=== PATIENT | female | born 1965 | race Caucasian/White ===

== ENCOUNTER → 2020-10-24 | Outpatient (CLI) | payer MEDICAID ==
[~2020-10-24] MED LIST: ASPI81TA45 PO; ATOR40TA78 PO; DICLOFENAC 1% GEL TP; DULO40CA2 PO; FISH OIL PO; FLUT12AE INH; HYDR-3248 PO; IBUP-1902 PO; LEVO150T5 PO; LOSA1TAB19 PO; METO25TA35 PO; MORP15TA PO; MULT-717 PO; OMEP-110 PO; TRAZ50TA66 PO; VITAMIN D3 PO
[2020-10-24 14:30] LABS: MEAN CORPUSCULAR HEMOGLOBIN 32.3 pg (27.0-34.8); MEAN CORPUSCULAR HGB CONC 33.9 g/dL (32.4-35.8); MEAN PLATELET VOLUME 7.6 fL (7.4-10.4); PLATELET COUNT 298 x10^3/uL (130-400); RED BLOOD COUNT 4.21 x10^6/uL (3.82-5.3); RED CELL DISTRIBUTION WIDTH 13.2 % (9.6-15.2)
[2020-10-24 14:37] LABS: MICROSCOPIC NOT IND
[2020-10-24 14:42] LABS: ALBUMIN 4.1 g/dL (3.4-5.0); ANION GAP 5 mmol/L (5-15); CALCIUM 8.9 mg/dL (8.5-10.1); CHLORIDE 100 mmol/L (98-107)
[2020-10-24 14:44] LABS: INTERNATIONAL NORMALIZED RATIO 0.94 (0.93-1.1); PROTHROMBIN TIME 10.1 Seconds (9.6-11.5)
[2020-10-24 14:45] LABS: ALKALINE PHOSPHATASE 87 U/L (45-117); BILIRUBIN,TOTAL 0.4 mg/dL (0.2-1.0); CREATININE 0.69 mg/dL (0.55-1.02); TOTAL PROTEIN 8.4 g/dL (6.4-8.2)
[2020-10-24 14:58] LABS: ALANINE AMINOTRANSFERASE 46 U/L (12-78)
[2020-10-24 15:14] LABS: MD YES
[2020-10-24 15:18] LABS: <PLATELET ESTIMATE> ADEQUATE; <PLT MORPHOLOGY> NORMAL PLT MORPH; <RBC MORPHOLOGY> NORMAL; BASOS% (MANUAL) 1 % (0-1); LYMPHS% (MANUAL) 43 % (22-44); MONOS% (MANUAL) 10 % (2-9); SEGS% (MANUAL) 46 % (42-75)
== END | disposition home or self-care (01) ==
LOC: STAR 13:29
PROVIDERS: ATTEND Orthopaedic Surgery
DX: Z01.812 Encounter for preprocedural laboratory examination (principal); Z20.822 Contact with and (suspected) exposure to COVID-19; M54.12 Radiculopathy, cervical region
CPT/HCPCS: 36415; 71046; 80053; 81003; 82306; 85025; 85610; 85730; 93005; U0003

== ENCOUNTER 2020-10-30 05:25 | Inpatient (IN) | payer MEDICAID ==
[~2020-10-30] VITALS: Ht 160 cm; Wt 85.5 kg
[2020-10-30] MEDS ORDERED: CHLORHEXIDINE 15 ML UDC ONE (06:10)
[2020-10-30] MEDS ORDERED: CEFAZOLIN PMX 1GM/50ML 50 ML ONE (06:10)
[2020-10-30] MEDS ORDERED: BUPIVACAINE/PF 0.5% ONE (06:18)
[2020-10-30] MEDS ORDERED: EPINEPHRINE 1 MG/ML, 1ML ONE (06:18)
[2020-10-30] MEDS ORDERED: VANCOMYCIN 1,000 MG ONE (06:18)
[2020-10-30] MEDS ORDERED: BACITRACIN 50,000 UNIT ONE (06:19)
[2020-10-30] MEDS ORDERED: CEFAZOLIN PMX 1GM/50ML 50 ML IV ONE (06:30)
[2020-10-30] MEDS ORDERED: CHLORHEXIDINE 15 ML UDC PO ONE (06:30)
[2020-10-30] MEDS ORDERED: LACTATED RINGERS 1,000 ML IV SCH (06:30)
[2020-10-30] MEDS ORDERED: FENTANYL PF 250 MCG/5ML ONE (06:49)
[2020-10-30] MEDS ORDERED: PROPOFOL 100 ML ONE (06:49)
[2020-10-30] MEDS ORDERED: MIDAZOLAM 1 MG/ML, 2ML ONE (06:49)
[2020-10-30] MEDS ORDERED: PROPOFOL 10 MG/ML, 20ML ONE (06:49)
[2020-10-30] MEDS ORDERED: SUCCINYLCHOLINE 20 MG/ML, 10ML ONE (06:50)
[2020-10-30] MEDS ORDERED: ROCURONIUM 10MG/ML,5ML ONE (06:50)
[2020-10-30] MEDS ORDERED: DEXAMETHASONE 4 MG/ML, 1ML ONE ×3 (07:10)
[2020-10-30] MEDS ORDERED: CEFAZOLIN 1,000 MG ONE (07:11)
[2020-10-30] MEDS ORDERED: PROMETHAZINE 25 MG/ML, 1ML IVPush PRN (08:00)
[2020-10-30] MEDS ORDERED: ACETAMINOPHEN 325 MG TABLET PO PRN (08:00)
[2020-10-30] MEDS ORDERED: ONDANSETRON 2MG/ML, 2ML IVPush PRN (08:00)
[2020-10-30] MEDS ORDERED: OXYcodone 5 MG/5 ML ORAL.SOL UDC PO PRN (08:00)
[2020-10-30] MEDS ORDERED: LABETALOL 5MG/ML, 20ML IV PRN ×2 (08:00→11:30)
[2020-10-30] MEDS ORDERED: hydrALAzine 20 MG/ML, 1ML IV PRN (08:00)
[2020-10-30] MEDS ORDERED: LORazepam 2 MG/ML, 1ML IVPush PRN (08:00)
[2020-10-30] MEDS ORDERED: METHOCARBAMOL 1,000 MG in DEXTROSE 5% 100 ML IV PRN (08:00)
[2020-10-30] MEDS ORDERED: HYDROmorphone 1 MG/ML, 1ML INJ IVPush PRN (08:00)
[2020-10-30] MEDS ORDERED: ONDANSETRON 2MG/ML, 2ML ONE (09:10)
[2020-10-30] MEDS ORDERED: FENTANYL PF 100 MCG/2ML ONE (09:45)
[2020-10-30] MEDS: FENTANYL PF 100 MCG/2ML IV PRN ×3 (09:48→10:18)
[2020-10-30] MEDS ORDERED: OXYcodone 5 MG/5 ML ORAL.SOL UDC ONE (10:03)
[2020-10-30] MEDS ORDERED: HYDROmorphone 1 MG/ML, 1ML INJ ONE (10:26)
[2020-10-30] MEDS ORDERED: DIPHENHYDRAMINE 50 MG/ML, 1ML IVPush PRN (11:30)
[2020-10-30] MEDS ORDERED: PROMETHAZINE 25 MG/ML, 1ML IM PRN (11:30)
[2020-10-30] MEDS ORDERED: ACETAMINOPHEN 650 MG SUPP PR PRN (11:30)
[2020-10-30] MEDS ORDERED: SODIUM CHLORIDE 0.9% 1,000ML IV PRN (11:30)
[2020-10-30] MEDS ORDERED: MAGNESIUM HYDROXIDE 8%, 30ML UDC PO PRN (11:30)
[2020-10-30] MEDS ORDERED: BISACODYL 10 MG SUPP PR PRN (11:30)
[2020-10-30] MEDS: LABETALOL 5MG/ML, 20ML IV SCH ×2 (11:30→21:11)
[2020-10-30] MEDS ORDERED: DIPHENHYDRAMINE 25 MG CAPSULE PO PRN (11:30)
[2020-10-30] MEDS ORDERED: HYDROmorphone 2 MG/ML, 1ML IM PRN (11:30)
[2020-10-30] MEDS ORDERED: DIPHENHYDRAMINE 50 MG/ML, 1ML IM PRN (11:30)
[2020-10-30] MEDS ORDERED: ONDANSETRON 2MG/ML, 2ML IV PRN (11:30)
[2020-10-30] MEDS: CYCLOBENZAPRINE 10 MG TABLET PO PRN ×2 (12:26→20:56)
[2020-10-30] MEDS: ACETAMINOPHEN 500 MG TABLET PO PRN ×2 (12:27→22:28)
[2020-10-30] MEDS: NS + 20MEQ KCL 1,000 ML IV SCH ×2 (12:52→23:00)
[2020-10-30] MEDS: OXYcodone IR 5MG TABLET PO PRN ×3 (14:32→22:28)
[2020-10-30] MEDS: CEFAZOLIN PMX 1GM/50ML 50 ML IVPB SCH ×2 (14:32→23:13)
[2020-10-30] MEDS: DEXAMETHASONE 4 MG/ML, 1ML IV SCH ×2 (14:33→22:27)
[2020-10-30 15:00] VITALS: BP 115/75
[2020-10-30] MEDS: HYDROmorphone 2MG TABLET PO PRN ×2 (15:32→20:51)
[2020-10-30 18:36] VITALS: BP 121/67
[2020-10-30] MEDS ORDERED: ATORVASTATIN 40 MG TABLET PO SCH (21:00)
[2020-10-30] MEDS ORDERED: TRAZODONE 50MG TABLET PO SCH (21:00)
[2020-10-31 00:24] VITALS: BP 131/83
[2020-10-31] MEDS: HYDROmorphone 2MG TABLET PO PRN ×3 (01:03→09:26)
[2020-10-31] MEDS: OXYcodone IR 5MG TABLET PO PRN ×2 (02:58→12:21)
[2020-10-31 03:23] VITALS: BP 137/76
[2020-10-31] MEDS: LABETALOL 5MG/ML, 20ML IV SCH ×2 (05:15→13:34)
[2020-10-31] MEDS: ACETAMINOPHEN 500 MG TABLET PO PRN ×2 (05:25→13:34)
[2020-10-31 05:32] LABS: BASOPHILS % (AUTO) 0 % (0-1); EOSINOPHILS % (AUTO) 0 % (1-7); LYMPHOCYTES % (AUTO) 13 % (22-44); MEAN CORPUSCULAR HEMOGLOBIN 31.5 pg (27.0-34.8); MEAN CORPUSCULAR HGB CONC 33.4 g/dL (32.4-35.8); MEAN PLATELET VOLUME 7.5 fL (7.4-10.4); MONOCYTES % (AUTO) 4 % (2-9); NEUTROPHILS % (AUTO) 83 % (42-75); PLATELET COUNT 253 x10^3/uL (130-400); RED BLOOD COUNT 3.63 x10^6/uL (3.82-5.3); RED CELL DISTRIBUTION WIDTH 13.1 % (9.6-15.2)
[2020-10-31 05:33] LABS: MD NO
[2020-10-31 05:47] LABS: ANION GAP 5 mmol/L (5-15); CALCIUM 8.7 mg/dL (8.5-10.1); CHLORIDE 107 mmol/L (98-107); CREATININE 0.74 mg/dL (0.55-1.02)
[2020-10-31] MEDS ORDERED: ASPIRIN 81 MG TABLET EC PO SCH (06:00)
[2020-10-31] MEDS ORDERED: LEVOTHYROXINE 150 MCG TABLET PO SCH (06:00)
[2020-10-31] MEDS: CYCLOBENZAPRINE 10 MG TABLET PO PRN (06:17)
[2020-10-31] MEDS: DEXAMETHASONE 4 MG/ML, 1ML IV SCH (06:17)
[2020-10-31] MEDS ORDERED: ONDA4TAB7 PO (08:00)
[2020-10-31] MEDS ORDERED: SENN-211 PO (08:00)
[2020-10-31] MEDS ORDERED: CYCL10TA2 PO (08:00)
[2020-10-31] MEDS ORDERED: NICO1PAT31 TD ×2 (08:00)
[2020-10-31] MEDS ORDERED: ACET-1600 PO (08:00)
[2020-10-31] MEDS ORDERED: LOSARTAN 50MG TABLET PO SCH (09:00)
[2020-10-31] MEDS ORDERED: METOPROLOL TARTRATE 25 MG TAB PO SCH (09:00)
[2020-10-31] MEDS ORDERED: SENNA/DOCUSATE TABLET PO SCH (09:00)
[2020-10-31] MEDS: NS + 20MEQ KCL 1,000 ML IV SCH (09:00)
[2020-10-31] MEDS ORDERED: FLUTICASONE FUROATE 100MCG/INH INH SCH (09:00)
[2020-10-31] MEDS ORDERED: HYDROCHLOROTHIAZIDE 12.5 MG CAPSULE PO SCH (09:00)
[2020-10-31 10:54] VITALS: BP 120/80
[2020-10-31 13:15] VITALS: BP 131/88
[2020-10-31 13:47] VITALS: BP 136/80
[2020-11-01] MEDS ORDERED: HEPARIN 5,000 UNITS/ML, 1ML SQ SCH (06:00)
== END 2020-10-31 14:28 | disposition home or self-care (01) | DRG 30 ==
LOC: OUT 05:25 → 4NE 11:01 → OUT 11:11 → DCLOUNGE 10-31 14:22
PROVIDERS: ADMIT Orthopaedic Surgery; ATTEND Orthopaedic Surgery
PROC: 0RG2070 Fusion of 2 or more Cervical Vertebral Joints with Autologous Tissue Substitute, Anterior Approach, Anterior Column, Open Approach (ICD-10-PCS; principal; 2020-10-30 07:00)
DX: M54.12 Radiculopathy, cervical region (principal); Z79.899 Other long term (current) drug therapy
CPT/HCPCS: 36415; 72040; S0020; 80048; 85025; 95938; 95941; C1713; G0378; J0171; J0690; J1100; J1170; J2250; J2405; J2704; J3010; J3370; J3480; C1762; J0330; J2800; J7120